=== PATIENT | male | born 1940 | race Caucasian/White ===

== ENCOUNTER 2024-03-20 04:47 | Emergency (ER) | payer MEDICARE, OTHER ==
[~2024-03-20] VITALS: Ht 165.1 cm; Wt 72.7 kg
[~2024-03-20 04:47] MED LIST: ACET-3068 PO; AMLO-139 PO; ASPI81TA52 PO; ATOR20TA PO; DEXL60CA3 PO; POTA-207 PO; TRAZ-91 PO
[2024-03-20 04:51] VITALS: TEMP 98.1
[2024-03-20] MEDS: TETanus/Pertussis (Acell)/Diphther VAC/PF (Tdap-Adult) 0.5ml syringe IMVAC ONE (06:05)
[2024-03-20] MEDS: acetaminophen 325mg tablet PO ONE (06:07)
[2024-03-20 08:26] VITALS: BP 124/66; PULSE 71; RESP 16; O2SAT 96
== END 2024-03-20 08:28 | disposition home or self-care (01) ==
LOC: ER 04:47
DX: S01.91XA Laceration without foreign body of unspecified part of head, initial encounter (principal); K21.9 Gastro-esophageal reflux disease without esophagitis; Z85.9 Personal history of malignant neoplasm, unspecified; Z98.890 Other specified postprocedural states; W18.30XA Fall on same level, unspecified, initial encounter; Y93.89 Activity, other specified; Y92.002 Bathroom of unspecified non-institutional (private) residence as the place of occurrence of the external cause; Y99.8 Other external cause status
CPT/HCPCS: 70450; 72125; 90471; 90715; 99285

== ENCOUNTER 2024-06-06 11:24 | Outpatient (CLI) | payer MEDICARE, OTHER ==
[~2024-06-06 11:24] MED LIST changes: -DEXL60CA3 PO; +METO-395 PO; -POTA-207 PO; -TRAZ-91 PO
== END 2024-06-06 23:59 | disposition home or self-care (01) ==
LOC: RAD 11:24
PROVIDERS: ATTEND Nurse Practitioner Family
DX: G91.2 (Idiopathic) normal pressure hydrocephalus (principal)
CPT/HCPCS: 70450

== ENCOUNTER 2024-07-30 15:11 | Outpatient (CLI) | payer MEDICARE | END 2024-07-30 23:59 | disposition home or self-care (01) | LOC: RAD 15:11 | PROVIDERS: ATTEND Nurse Practitioner Family | DX: G91.2 (Idiopathic) normal pressure hydrocephalus (principal) | CPT/HCPCS: 70450 ==